=== PATIENT | male | born 1970 | race Caucasian/White ===

== ENCOUNTER 2020-08-29 22:08 | Emergency (ER) | payer SELFPAY ==
[2020-08-29 22:14] VITALS: BP 136/81; PULSE 107; RESP 18; TEMP 36.5; O2SAT 94
[2020-08-29 22:29] LABS: Glucose Point of Care 348 mg/dL (70-110)
--- NOTE | 2020-08-29 22:34 | W.ED.NAVMDI ---
HPI - Nausea/Vomiting/Diarrhea General: Chief complaint: Nausea/Vomiting/Diarrhea Stated complaint: vomiting, needing blood sugar tested Time Seen by Provider: 08/29/20 22:23 Source: patient Mode of arrival: ambulatory Limitations: no limitations History of Present Illness: HPI Narrative: 50-year-old male states the last 2 to 3 weeks he has had increased thirst along with a a lot of urination. He states he is concerned he is a diabetic. His blood sugar here is 348. She has had some slight blurry vision and nausea and vomiting tonight. Denies any pain anywhere. Denies any difficulty walking. Denies any chest pain. Associated nausea: Yes Associated symtoms: Reports nausea; Denies chest pain, dysuria or headache(s) Review of Systems Const: Denies: fever(s), chills, body aches or change in appetite Eyes: Denies: blurry vision or eye discomfort ENMT: Denies: throat pain or dental pain Card: Denies: chest pain Resp: Denies: dyspnea GI: Reports: nausea and vomiting; Denies: abdominal pain or diarrhea : Denies: dysuria Musc: Denies: neck pain or back pain Skin/Breast: Denies: rash Neuro: Denies: headache(s) Psych: Denies: depression Endo: Reports: polyuria and polydipsia Kvng/Lymph: Denies: easy bruising All/Imm: Denies: urticaria Physical Exam Const: COMMON NORMALS: no acute distress, patient oriented x3 and healthy appearing HENMT: COMMON NORMALS: normocephalic and atraumatic HEAD & SCALP: normocephalic and atraumatic Eye: COMMON NORMALS: Equal, round and reactive pupils present and EOMs intact bilaterally PUPIL: Yes Equal, round and reactive pupils present Neck/C-Spine: COMMON NORMALS: full ROM and supple Chest: COMMONS NORMALS: normal inspection of the chest and normal palpation of entire chest wall Resp: COMMON NORMALS: normal respiratory effort, No retractions, No use of accessory muscles and clear to auscultation bilaterally AUSCULTATION: clear to auscultation bilaterally Cardio: COMMON NORMALS: regular rate, regular rhythm and No murmurs present (Cardio) RATE: regular rate RHYTHM: regular rhythm GI: COMMON NORMALS: Normal to inspection, nondistended, normoactive bowel sounds present, Soft to palpation, non-tender and no masses PALPATION: Yes Soft to palpation Extremity: COMMON NORMALS: normal to inspection and full ROM Neuro: COMMON NORMALS: patient oriented x3, moves all extremities and no focal motor deficits Psych: COMMON NORMALS: mental status grossly normal, Normal thought process present and cooperative THOUGHT PROCESS: Normal thought process present Skin: COMMON NORMALS: no rashes or lesions noted and no wounds GENERAL SKIN EXAM: no rashes or lesions noted Course Vital Signs: Vital signs: Vital Signs Temperature 97.7 F 08/29/20 22:14 Pulse Rate 88 08/29/20 23:38 Respiratory Rate 16 08/29/20 23:38 Blood Pressure 151/91 08/29/20 23:38 Pulse Oximetry 95 08/29/20 23:38 MDM - Nausea/Vomiting/Diarrhea MDM Narrative: Medical decision making narrative: Patient presents here with hyperglycemia is likely prediabetic or early diabetic. We will start him on a low-dose of Metformin he is to follow-up with PCP. Will prescribe him Zofran as well for his nausea. His CT of his abdomen here is normal and other blood work is normal as well. He is stable for discharge is return if worsening. Lab Data: Labs: Lab Results 08/29/20 08/29/20 08/29/20 Range/Units 22:24 22:55 22:55 WBC 8.9 (4.0-10.0) 10^3/ uL RBC 5.08 (4.1-5.3) 10^6/u L Hgb 15.9 (11.7-16.6) g/dL Hct 44.6 (42.0-52.0) % MCV 87.8 (80-94) fL MCH 31.3 (28.0-34.0) pg MCHC 35.7 (30.0-36.0) g/dL RDW 11.7 L (12.1-15.1) % Plt Count 210 (130-400) 10^3/c mm MPV 10.8 H (7.4-10.4) fL Neut % (Auto) 83.2 % Lymph % (Auto) 7.2 % [place] % (Auto) 7.0 % Eos % (Auto) 1.3 % Baso % (Auto) 0.9 % Neut # (Auto) 7.43 (1.8-7.7) 10^3/u L Lymph # (Auto) 0.6 L (0.8-4.8) 10^3/u L [place] # (Auto) 0.6 (0.2-0.9) 10^3/u L Eos # (Auto) 0.1 (0.0-0.8) 10^3/u L Baso # (Auto) 0.1 (0.0-0.1) 10^3/u L Nucleated RBC % (a uto) 0 % Nucleated RBCs # 0.0 /100WBC Sodium 128 L (136-145) mmol/L Potassium 4.7 (3.5-5.1) mmol/L Chloride 91 L (98-107) mmol/L Carbon Dioxide 27 (22-29) mmol/L Anion Gap 14.7 (5-19) BUN 13 (6-20) mg/dL Creatinine 1.0 (0.7-1.2) mg/dL GFR Calculation 79.4 L (90-130) mL/min Glucose 353 H (65-115) mg/dL POC Glucose 348 H (70-110) mg/dL Estimat Average Gl ucose Hemoglobin A1c (4.0-6.0) % Calculated Osmolal ity 280 L (285-295) mOsm/k g Calcium 9.3 (8.5-10.5) mg/dL Total Bilirubin 0.9 (0.15-1.2) mg/dL AST 280 H (0-40) U/L ALT 438 H (0-41) U/L Alkaline Phosphata se 151 H (40-130) IU/L Total Protein 7.5 (6.6-8.7) g/dL Albumin 4.4 (3.5-5.2) g/dL Globulin 3.1 (1.3-4.6) g/dL Lipase 27 (13-60) U/L 08/29/20 08/30/20 Range/Units 22:55 00:08 WBC (4.0-10.0) 10^3/ uL RBC (4.1-5.3) 10^6/u L Hgb (11.7-16.6) g/dL Hct (42.0-52.0) % MCV (80-94) fL MCH (28.0-34.0) pg MCHC (30.0-36.0) g/dL RDW (12.1-15.1) % Plt Count (130-400) 10^3/c mm MPV (7.4-10.4) fL Neut % (Auto) % Lymph % (Auto) % [place] % (Auto) % Eos % (Auto) % Baso % (Auto) % Neut # (Auto) (1.8-7.7) 10^3/u L Lymph # (Auto) (0.8-4.8) 10^3/u L [place] # (Auto) (0.2-0.9) 10^3/u L Eos # (Auto) (0.0-0.8) 10^3/u L Baso # (Auto) (0.0-0.1) 10^3/u L Nucleated RBC % (a uto) % Nucleated RBCs # /100WBC Sodium (136-145) mmol/L Potassium (3.5-5.1) mmol/L Chloride (98-107) mmol/L Carbon Dioxide (22-29) mmol/L Anion Gap (5-19) BUN (6-20) mg/dL Creatinine (0.7-1.2) mg/dL GFR Calculation (90-130) mL/min Glucose (65-115) mg/dL POC Glucose 347 H (70-110) mg/dL Estimat Average Gl ucose 105 Hemoglobin A1c 5.3 (4.0-6.0) % Calculated Osmolal ity (285-295) mOsm/k g Calcium (8.5-10.5) mg/dL Total Bilirubin (0.15-1.2) mg/dL AST (0-40) U/L ALT (0-41) U/L Alkaline Phosphata se (40-130) IU/L Total Protein (6.6-8.7) g/dL Albumin (3.5-5.2) g/dL Globulin (1.3-4.6) g/dL Lipase (13-60) U/L Imaging Data^: CT Abd/Pel: Radiologist's impression: [address] [address] [address] Scan Report Signed Patient: Niels Del Cid Unit #: [id number] : 1970 Age/Sex: 50 / M ADM Date: 08/29/20 Loc: ER Room/Bed: Attending Dr: Ordering Provider/Ordering MD: Serge Quiros MD Date of Service: 08/29/20 Procedure(s): CT abdomen pelvis w con* [id number] Accession Number(s): [id number] Report Number: [id number] PROCEDURE INFORMATION: Exam: CT Abdomen And Pelvis With Contrast Exam date and time: 08/29/2020 12:11 AM Age: 50 years old Clinical indication: Nausea and vomiting; Patient HX: N/v with elevated blood sugar; Additional info: Pain TECHNIQUE: Imaging protocol: Computed tomography of the abdomen and pelvis with contrast. Radiation optimization: All CT scans at this facility use at least one of these dose optimization techniques: automated exposure control; mA and/or kV adjustment per patient size (includes targeted exams where dose is matched to clinical indication); or iterative reconstruction. Contrast material: OMNI 300; Contrast volume: 95 ml; Contrast route: INTRAVENOUS (IV); COMPARISON: No relevant prior studies available. RADIATION DOSE METRICS: Total DLP (mGy-cm): 2098.33 FINDINGS: Lungs: No significant abnormaility demonstrated. Liver: Decreased hepatic density is noted, consistent with hepatic steatosis. Gallbladder and bile ducts: No calcified gallstones in the gallbladder. No gallbladder wall thickening. No pericholecystic fluid. No biliary dilatation. Pancreas: The pancreas is normal in appearance. No pancreatic duct dilatation. Spleen: Calcified granulomas in the spleen. Adrenal glands: The adrenal glands appear within normal limits. Kidneys and ureters: 10 mm simple appearing cyst left kidney. Kidneys are otherwise unremarkable. No hydronephrosis. Stomach and bowel: No acute gastric abnormality demonstrated. No acute abnormality/inflammatory change of the colon. Mild mural thickening and mucosal enhancement of the proximal small bowel which may indicate mild enteritis. No small bowel obstruction. Appendix: The appendix is normal in appearance. No evidence of appendicitis. Intraperitoneal space: No free air. No significant fluid collection. Vasculature: The aorta is unremarkable as demonstrated. Lymph nodes: Calcified mediastinal lymph nodes consistent with old granulomatous disease. No pathologically enlarged lymph nodes are demonstrated. Urinary bladder: The urinary bladder is unremarkable in appearance. Reproductive: Unremarkable as visualized. Bones/joints: Degenerative disc changes are noted at L5-S1. No acute osseous abnormality. Soft tissues: Unremarkable. CT/CT abdomen pelvis w con* [id number] IMPRESSION: 1. Decreased hepatic density is noted, consistent with hepatic steatosis. 2. Mild mural thickening and mucosal enhancement of the proximal small bowel which may indicate mild enteritis. No small bowel obstruction. 3. Mild changes of old granulomatous disease are identified. Discharge Plan Discharge Patient Disposition: Home Clinical Impression: Hyperglycemia Vomiting Qualifiers: Vomiting type: unspecified Vomiting Intractability: non-intractable Nausea presence: with nausea Qualified Code(s): R11.2 - Nausea with vomiting, unspecified Condition: Stable Prescriptions: New ondansetron 4 mg tablet,disintegrating 4 mg PO Q6H PRN (Reason: nausea and vomiting) Qty: 14 RF: 0 metformin 500 mg tablet 500 mg PO BID Qty: 60 RF: 0 Discharge Orders: Discharge ED (Routine); Ordered 08/30/20 Ordered By: Serge Quiros Discharge Diet: Advance as tolerated Discharge Activity: Resume usual activity Patient Instructions: Diabetic Hyperglycemia (ED) Coding Level of Care Code ED Metal Sprayer Protective Coating for Chg Fwd Exam Comprehensive
[2020-08-29] MEDS: ondansetron 2 mg/ML SDV 2 mL 4 MG IVP (22:56)
[2020-08-29] MEDS: sodium chloride 0.9% 1,000 ML 999 ML IV (22:56)
[2020-08-29 23:03] LABS: Basophils # 0.1 10^3/uL (0.0-0.1); Basophils % 0.9 %; Eosinophils # 0.1 10^3/uL (0.0-0.8); Eosinophils % 1.3 %; Hematocrit 44.6 % (42.0-52.0); Hemoglobin 15.9 g/dL (11.7-16.6); Lymphocytes # 0.6 10^3/uL (0.8-4.8); Lymphocytes % 7.2 %; Mean Corpuscular HGB Conc 35.7 g/dL (30.0-36.0); Mean Corpuscular Hemoglobin 31.3 pg (28.0-34.0); Mean Corpuscular Volume 87.8 fL (80-94); Mean Platelet Volume 10.8 fL (7.4-10.4); Monocytes # 0.6 10^3/uL (0.2-0.9); Neutrophils # 7.43 10^3/uL (1.8-7.7); Neutrophils % 83.2 %; Nucleated Red Blood Cells % 0 %; Platelet Count 210 10^3/cmm (130-400); Red Blood Count 5.08 10^6/uL (4.1-5.3); Red Cell Distribution Width 11.7 % (12.1-15.1); White Blood Count 8.9 10^3/uL (4.0-10.0)
[2020-08-29 23:20] VITALS: BP 146/88; PULSE 91; RESP 16; O2SAT 94
[2020-08-29 23:29] LABS: Alanine Aminotransferase 438 U/L (0-41); Albumin Level 4.4 g/dL (3.5-5.2); Alkaline Phosphatase 151 IU/L (40-130); Anion Gap 14.7 (5-19); Aspartate Amino Transferase 280 U/L (0-40); Blood Urea Nitrogen 13 mg/dL (6-20); Calcium 9.3 mg/dL (8.5-10.5); Carbon Dioxide 27 mmol/L (22-29); Chloride 91 mmol/L (98-107); Globulin 3.1 g/dL (1.3-4.6); Glomerular Filtration Rate 79.4 mL/min (90-130); Glucose 353 mg/dL (65-115); Lipase 27 U/L (13-60); Osmolality Calculated 280 mOsm/kg (285-295); Potassium 4.7 mmol/L (3.5-5.1); Sodium 128 mmol/L (136-145); Total Bilirubin 0.9 mg/dL (0.15-1.2); Total Protein 7.5 g/dL (6.6-8.7)
[2020-08-29 23:33] LABS: Estmated Average Glucose 105; Hemoglobin A1C 5.3 % (4.0-6.0)
--- NOTE | 2020-08-29 23:37 | CTR_ITS ---
PROCEDURE INFORMATION: Exam: CT Abdomen And Pelvis With Contrast Exam date and time: 08/29/2020 12:11 AM Age: 50 years old Clinical indication: Nausea and vomiting; Patient HX: N/v with elevated blood sugar; Additional info: Pain TECHNIQUE: Imaging protocol: Computed tomography of the abdomen and pelvis with contrast. Radiation optimization: All CT scans at this facility use at least one of these dose optimization techniques: automated exposure control; mA and/or kV adjustment per patient size (includes targeted exams where dose is matched to clinical indication); or iterative reconstruction. Contrast material: OMNI 300; Contrast volume: 95 ml; Contrast route: INTRAVENOUS (IV); COMPARISON: No relevant prior studies available. RADIATION DOSE METRICS: Total DLP (mGy-cm): 2098.33 FINDINGS: Lungs: No significant abnormaility demonstrated. Liver: Decreased hepatic density is noted, consistent with hepatic steatosis. Gallbladder and bile ducts: No calcified gallstones in the gallbladder. No gallbladder wall thickening. No pericholecystic fluid. No biliary dilatation. Pancreas: The pancreas is normal in appearance. No pancreatic duct dilatation. Spleen: Calcified granulomas in the spleen. Adrenal glands: The adrenal glands appear within normal limits. Kidneys and ureters: 10 mm simple appearing cyst left kidney. Kidneys are otherwise unremarkable. No hydronephrosis. Stomach and bowel: No acute gastric abnormality demonstrated. No acute abnormality/inflammatory change of the colon. Mild mural thickening and mucosal enhancement of the proximal small bowel which may indicate mild enteritis. No small bowel obstruction. Appendix: The appendix is normal in appearance. No evidence of appendicitis. Intraperitoneal space: No free air. No significant fluid collection. Vasculature: The aorta is unremarkable as demonstrated. Lymph nodes: Calcified mediastinal lymph nodes consistent with old granulomatous disease. No pathologically enlarged lymph nodes are demonstrated. Urinary bladder: The urinary bladder is unremarkable in appearance. Reproductive: Unremarkable as visualized. Bones/joints: Degenerative disc changes are noted at L5-S1. No acute osseous abnormality. Soft tissues: Unremarkable. CT/CT abdomen pelvis w con* [id number] IMPRESSION: 1. Decreased hepatic density is noted, consistent with hepatic steatosis. 2. Mild mural thickening and mucosal enhancement of the proximal small bowel which may indicate mild enteritis. No small bowel obstruction. 3. Mild changes of old granulomatous disease are identified. COMMENTS: Consistent with the [employer]'s Incidental Findings Committee white paper (J Am Jenny Radiol 2018): Any incidental renal lesion less than 1 cm or classified as too small to characterize, or any incidental cystic renal lesion characterized as simple-appearing, is likely benign. No follow-up imaging is recommended for these lesions per consensus recommendations based on imaging criteria. Radiation Dose CTDIVOL = (mGy): DLP = 2098.33 (mGy-cm)
[2020-08-29 23:38] VITALS: BP 151/91; PULSE 88; RESP 16; O2SAT 95
[2020-08-30] MEDS: sodium chloride 0.9% 1,000 ML 999 ML IV (00:07)
[2020-08-30 00:10] LABS: Glucose Point of Care 347 mg/dL (70-110)
[2020-08-30] MEDS: iohexol 300 mg/mL 100 mL Btl IV (00:13)
[2020-08-30 01:00] VITALS: BP 149/79; PULSE 92; RESP 18; O2SAT 97
--- NOTE | 2020-08-30 13:26 | DCPLANNER ---
manager sports had message to speak with patient about getting established with a primary care physician. manager sports called phone number [phone], unable to speak with patient at this time, and unable to leave a voicemail for patient due to no voicemail box set up at this time.
--- NOTE | 2020-09-12 15:33 | DCPLANNER ---
Patient called centralized scheduling asking about the follow up call that he was supposed to be getting after his ER visit about getting established with a primary care. manager hair explained that case fitter tried to call patient, case fitter was told that case fitter had the wrong phone number for patient. manager hair was given an updated phone number, , case fitter called phone number, unable to speak with patient at this time. manager hair left a voicemail for patient to return case fitter phone call.
--- NOTE | 2020-09-13 09:27 | DCPLANNER ---
Patients significant other called case management specialist due to missing a phone call from case management specialist. gym manager explained that case management specialist called due to patient needing a primary care physician. Patients friend stated that patient needed a physician, and that he would prefer a male physician. gym manager called [facility], spoke with Daphney, gave clinic patients information. A follow up appointment was scheduled for September at 7:[address] Valentine. gym manager called patients friend and gave her the appointment information. gym manager also gave patients friend the phone number to the clinic. gym manager explained that patient can call cancel the appointment, or reschedule the appointment but to not attend appointment. gym manager also told her that patient would be getting a letter in the mail and that patient would need to call and confirm the appointment or that it would be cancelled. Patients friend stated that she understood and that patient will attend the appointment.
--- NOTE | 2020-10-24 08:18 | DCPLANNER ---
Patient had a follow up appointment scheduled for 09.28.20 at [facility] with Dr. Valentine - patient did attend appointment.
== END 2020-08-30 01:02 | disposition home or self-care (01) ==
PROVIDERS: Emergency Provider Emergency Medicine
DX: R11.2 Nausea with vomiting, unspecified (principal); R73.9 Hyperglycemia, unspecified
CPT/HCPCS: 36416; 74177; 80053; 82962; 83036; 83690; 85025; 96361; 96374; 99284; J2405; J7030; Q9967

== ENCOUNTER → 2020-09-28 08:24 | Outpatient (BNVA) | payer SELFPAY | PROVIDERS: Visit Provider Family Medicine Adult Medicine | DX: E11.9 Type 2 diabetes mellitus without complications (principal); M54.2 Cervicalgia; M54.9 Dorsalgia, unspecified; G89.29 Other chronic pain; R94.4 Abnormal results of kidney function studies; R74.8 Abnormal levels of other serum enzymes; Z68.31 Body mass index [BMI] 31.0-31.9, adult | CPT/HCPCS: 80053 ==

== ENCOUNTER → 2020-10-26 07:29 | Outpatient (BNVA) | payer SELFPAY | PROVIDERS: PCP Family Medicine Adult Medicine; Visit Provider Family Medicine Adult Medicine | DX: E11.9 Type 2 diabetes mellitus without complications (principal); R74.8 Abnormal levels of other serum enzymes; R94.4 Abnormal results of kidney function studies; Z68.31 Body mass index [BMI] 31.0-31.9, adult | CPT/HCPCS: 80053; 80061; 83036 ==

== ENCOUNTER → 2021-01-25 07:41 | Outpatient (BNVA) | payer SELFPAY | PROVIDERS: PCP Family Medicine Adult Medicine; Visit Provider Family Medicine Adult Medicine | DX: E11.9 Type 2 diabetes mellitus without complications (principal); R74.8 Abnormal levels of other serum enzymes; R94.4 Abnormal results of kidney function studies | CPT/HCPCS: 80053; 83036 ==

== ENCOUNTER → 2021-04-26 07:22 | Outpatient (BNVA) | payer SELFPAY | PROVIDERS: PCP Family Medicine Adult Medicine; Visit Provider Family Medicine Adult Medicine | DX: E11.9 Type 2 diabetes mellitus without complications (principal); I10 Essential (primary) hypertension; Z13.6 Encounter for screening for cardiovascular disorders; E66.9 Obesity, unspecified | CPT/HCPCS: 80053; 80061; 83036 ==

== ENCOUNTER 2022-12-05 10:27 | Emergency (ER) | payer SELFPAY ==
[2022-12-05 10:38] VITALS: BP 179/103; PULSE 82; RESP 15; O2SAT 96; BMI 30.5
--- NOTE | 2022-12-05 11:02 | XR_ITS ---
WS: [id number] XR foot LT min 3V* [id number] REASON FOR EXAM: trauma FINDINGS: No fracture is identified. The joint spaces of the forefoot, midfoot, and hindfoot are intact and relatively well-preserved. No radiopaque foreign body is identified in the soft tissues. Small calcaneal plantar enthesophyte. XR/XR foot LT min 3V* [id number] IMPRESSION: No acute abnormality.
--- NOTE | 2022-12-05 11:08 | XR_ITS ---
WS: [id number] XR ankle LT min 3V* [id number] REASON FOR EXAM: trauma FINDINGS: No fracture identified. Joint spaces are intact and well preserved. No radiopaque foreign body in the soft tissues. XR/XR ankle LT min 3V* [id number] IMPRESSION: No acute abnormality.
--- NOTE | 2022-12-05 11:14 | ED_ITS ---
HPI - Extremity Problem General: Chief complaint: Extremity Injury, Lower Stated complaint: Left leg injury Time Seen by Provider: 12/05/22 10:49 Source: patient Mode of arrival: ambulatory History of Present Illness: 52-year-old male presents emergency room complaint of left ankle and foot pain. 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 He did not strike his head he did not lose consciousness his only complaint of pain is at left ankle and foot. He says it feels a little bit tingling. He has a hard time distinguishing hot and cold but can feel light and sharp touch. He previously had an ankle fracture several years ago. He is wearing a left elbow brace but he said that its been an ongoing problem there is no new injury there. MD Complaint: extremity pain Onset (ago): minute(s) Pain Consistency: constant Location: left Quality: sharp Relieving factors: immobilization Exacerbating factors: range of motion, weight bearing and palpation Associated symptoms: Deny arthralgias, chest pain, fever(s), myalgias, rash or short of breath Review of Systems Const: Denies: fever(s) or chills ENMT: Denies: throat pain, ear or mastoid pain, nasal discharge or nasal congestion Card: Denies: chest pain Resp: Denies: dyspnea, productive cough or non-productive cough GI: Denies: abdominal pain or nausea : Denies: flank pain, dysuria, urinary frequency or urinary urgency Musc: Reports: joint pain Skin/Breast: Denies: rash or pruritus PFSH ED PFSH: Medical History Chronic neck and back pain Decreased calculated GFR Diabetes type 2, controlled Elevated liver enzymes Hypertension Obesity (BMI 30.0-34.9) Family History Other CAD (coronary artery disease) Cancer Diabetes Social History Alcohol intake: never Substance/Drug Use: never Household members: significant other Marital status: Number of children: 2 Number of grandchildren: 0 Current occupational status: employed Current occupation: self employed Physical Exam Const: GENERAL APPEARANCE: cooperative and comfortable ORIENTATION/CONSCIOUSNESS: Yes awake, Yes oriented to person, Yes oriented to place and Yes oriented to time HENMT: COMMON NORMALS: normocephalic, atraumatic and hearing grossly normal bilaterally HEAD & SCALP: normocephalic and atraumatic Resp: COMMON NORMALS: normal respiratory effort, No retractions, No use of accessory muscles and clear to auscultation bilaterally AUSCULTATION: clear to auscultation bilaterally Cardio: COMMON NORMALS: regular rate, regular rhythm and No murmurs present (Cardio) RATE: regular rate RHYTHM: regular rhythm GI: COMMON NORMALS: Soft to palpation and No hepatosplenomegaly present AUSCULTATION: Yes normoactive bowel sounds PALPATION: Yes Soft to palpation, No Tenderness to palpation present (GI), No Guarding due to palpation present (GI) and Yes No hepatosplenomegaly present : COMMON NORMALS: Yes no CVA tenderness BLADDER/KIDNEY EXAM: Yes no CVA tenderness Back/Pelvis: COMMON NORMALS: no CVA tenderness Extremity: OTHER: No significant swelling no abrasion no laceration dorsum plantarflexion 5 of 5 sensation to sharp and dull touch normal no cyanosis. Neuro: SENSORIUM/ORIENTATION: Yes oriented to person, Yes oriented to place and Yes oriented to time Skin: COMMON NORMALS: no rashes or lesions noted GENERAL SKIN EXAM: no rashes or lesions noted Course Vital Signs: Vital signs: Vital Signs Pulse Rate 85 12/05/22 12:23 Respiratory Rate 16 12/05/22 12:23 Blood Pressure 164/87 12/05/22 12:23 Pulse Oximetry 98 12/05/22 12:23 Oxygen Delivery Me thod Room Air 12/05/22 10:38 MDM - Extremity (Nontraumatic) Medical Decision Making No acute fracture noted on x-ray. Rest ice elevation anti-inflammatories follow-up with primary care if not improving. He is able to bear weight initially he did not want crutches. We did give him crutches to go home in case he changes his mind. Medical Records I reviewed the patient's medical records. Lab Data I reviewed the patient's lab results. Radiology Impressions Foot X-Ray 12/05/22 11:02 IMPRESSION: No acute abnormality. Ankle X-Ray 12/05/22 11:08 IMPRESSION: No acute abnormality. Discharge Plan Discharge Patient Disposition: Home Clinical Impression: Ankle sprain and strain Condition: Stable Prescriptions: New diclofenac sodium 75 mg tablet,delayed release (DR/EC) 75 mg PO Q12H PRN (Reason: pain) Qty: 20 0RF No Action acetaminophen [Tylenol] 325 mg tablet 325 mg PO QID PRN lisinopril 5 mg tablet 5 mg PO DAILY Qty: 90 2RF metformin 500 mg tablet 500 mg PO DAILY Qty: 90 2RF Discharge Orders: Discharge ED (Routine); Ordered 12/05/22 Ordered By: Huber Rodríguez Other Ambulatory Orders: DME: Cane/ Crutches (Order) Location: None Selected Ordered By: Huber Rodríguez Discharge Diet: Usual diet Discharge Activity: Increase activity as tolerated Patient Instructions: Opioid Safety, Pain Management Activity Restrictions/Additional Instructions: Follow-up with your primary care doctor if not improving. Ice rest elevate anti-inflammatories as needed Coding Level of Care Code ED Invoice Clerk for Justus Nichols
[2022-12-05 11:21] VITALS: BP 170/101; PULSE 80; O2SAT 97
[2022-12-05 12:23] VITALS: BP 164/87; PULSE 85; RESP 16; O2SAT 98
--- NOTE | 2022-12-06 12:58 | DCPLANNER ---
TCM called patient due to no primary care physician - no answer at this time.
== END 2022-12-05 12:27 | disposition home or self-care (01) ==
PROVIDERS: Emergency Provider Family Medicine
DX: S93.402A Sprain of unspecified ligament of left ankle, initial encounter (principal); S96.912A Strain of unspecified muscle and tendon at ankle and foot level, left foot, initial encounter; W20.8XXA Other cause of strike by thrown, projected or falling object, initial encounter; Y93.89 Activity, other specified; Y99.0 Civilian activity done for income or pay
CPT/HCPCS: 73610; 73630; 99283

== ENCOUNTER 2024-09-30 06:48 | Emergency (ER) | payer SELFPAY ==
[2024-09-30] VITALS (12 sets, daily range): BP systolic 149–204; BP diastolic 90–116; PULSE 56–79; RESP 17–32; O2SAT 95–100
--- NOTE | 2024-09-30 07:01 | CTR_ITS ---
PROCEDURE INFORMATION: Exam: CT Head Without Contrast Exam date and time: 09/30/2024 6:59 AM Age: 54 years old Clinical indication: Stroke-like symptoms; Dizziness/giddiness and vomiting; Additional info: Symptoms of acute stroke TECHNIQUE: Imaging protocol: Computed tomography of the head without contrast. Radiation optimization: All CT scans at this facility use at least one of these dose optimization techniques: automated exposure control; mA and/or kV adjustment per patient size (includes targeted exams where dose is matched to clinical indication); or iterative reconstruction. Other technique: STROKE PROTOCOL was implemented. COMPARISON: No relevant prior studies available. RADIATION DOSE METRICS: Total DLP (mGy-cm): 1192.32 FINDINGS: Brain: There is no evidence of acute parenchymal hemorrhage, extra-axial collection, or acute infarction. There is no mass effect, midline shift, or downward herniation. Cerebral ventricles: No ventriculomegaly. Paranasal sinuses: Visualized sinuses are unremarkable. No fluid levels. Mastoid air cells: Visualized mastoid air cells are well aerated. Bones: Unremarkable. No acute fracture. Soft tissues: Unremarkable. CT/CT head thrombolytic [id number] IMPRESSION: No acute intracranial abnormality. ASSESSMENT: ASPECTS ([place] Stroke Program Early CT Score) is 10.
--- NOTE | 2024-09-30 07:04 | ED_ITS ---
HPI - Chest Pain 2 General: Chief Complaint: Chest Pain Stated Complaint: cp,n,v Time Seen by Provider: 09/30/24 07:01 History of Present Illness: 54-year-old male presents to the emergen cy room complaining of nausea vomiting has been going on all night began last night around 10:00. Patient states he also has a little bit of chest discomfort. He has dizziness that he reports is worsened by laying down or by looking up. Patient is diabetic is a history hypertension he has not been taking any of his medications for this. Is not currently having any chest pain at the moment. Initial EKG shows LVH no acute ST segment changes. Associated symptoms: Deny abdominal pain, dyspnea or fever(s) Related Data Previous Rx's ?Medication ?Instructions ?Recorded metformin 500 mg tablet 500 mg PO BID #60 tabs 09/30 metoprolol succinate 25 mg 12.5 mg (1/2 x 25 mg) PO DA JEAN MARIE #15 09/30/24 tablet,extended release 24 hr tabs (Toprol XL) Allergies Allergy/AdvReac Type Severity Reaction Status Date / Time aspirin Allergy ADR-Nose Verified 04/26/21 07:01 Bleed Review of Systems 2 Const: Denies: fever(s) or chills Card: Denies: chest pain Resp: Denies: dyspnea GI: Denies: abdominal pain : Denies: dysuria, urinary frequency or urinary urgency Musc: Denies: neck pain or back pain Skin/Breast: Denies: rash PFSH ED 2 PFSH: Medical History Obesity (BMI 30.0-34.9) Hypertension Elevated liver enzymes Decreased calculated GFR Chronic neck and back pain Diabetes type 2, controlled Family History Other CAD (coronary artery disease) Cancer Diabetes Social History Alcohol intake: never Substance/Drug Use: never Household members: significant other Marital status: Number of children: 2 Number of grandchildren: 0 Current occupational status: employed Current occupation: self employed Physical Exam 2 Const: GENERAL APPEARANCE: cooperative ORIENTATION/CONSCIOUSNESS: Yes awake, Yes oriented to person, Yes oriented to place and Yes oriented to time HENMT: COMMON NORMALS: normocephalic, atraumatic and hearing grossly normal bilaterally HEAD & SCALP: normocephalic and atraumatic Resp: COMMON NORMALS: normal respiratory effort, No retractions, No use of accessory muscles and clear to auscultation bilaterally AUSCULTATION: clear to auscultation bilaterally Cardio: COMMON NORMALS: regular rate, regular rhythm and No murmurs present (Cardio) RATE: regular rate RHYTHM: regular rhythm GI: COMMON NORMALS: Soft to palpation and No hepatosplenomegaly present A USCULTATION: Yes normoactive bowel sounds PALPATION: Yes Soft to palpation, No Tenderness to palpation present (GI), No Guarding due to palpation present (GI) and Yes No hepatosplenomegaly present Extremity: COMMON NORMALS: normal to inspection, capillary refill normal, no clubbing, cyanosis or edema, no calf tenderness and no pedal edema Neuro: SENSORIUM/ORIENTATION: Yes oriented to person, Yes oriented to place and Yes oriented to time Skin: COMMON NORMALS: no rashes or lesions noted GENERAL SKIN EXAM: no rashes or lesions noted Course 2 Vital Signs: Vital signs: Vital Signs Pulse Rate 56 L 09/30/24 09:30 Respiratory Rate 17 09/30/24 09:30 Blood Pressure 167/96 09/30/24 09:30 Pulse Oximetry 95 09/30/24 09:30 MDM - Chest Pain Medical Decision Making Symptoms resolved after blood pressure is controlled. CT of the head is negative NIH score 0 patient able to ambulate without significant difficulty no longer having any positional vertigo or dizziness now that his blood pressures improved. He was previously on antihypertensives as well as previously being on metformin. Will discharge patient home restart metformin 500 twice daily start Toprol XL 12.5 mg daily. Case management to help her make arrangements for establishing with a PCP. EKG and cardiac enzymes did not show sign of acute coronary syndrome we will set up outpatient Lexiscan sestamibi stress testing. Medical Records I reviewed the patient's medical records. Lab Data I reviewed the patient's lab results. 09/30/24 07:16 09/30/24 07:[address] 09/30/24 07:01 IMPRESSION: No acute intracranial abnormality. ASSESSMENT: ASPECTS ([place] Stroke Program Early CT Score) is 10. ADDENDUM: 09/30/2414 THIS REPORT CONTAINS FINDINGS THAT MAY BE CRITICAL TO PATIENT CARE. The findings were verbally communicated via telephone conference with HUBER GRISSOM at 7:13 AM CDT on 09/30/2024. The findings were acknowledged and understood. Laboratory Results WBC 7.94 10^3/uL (3.29-11.43) 09/30/24 07:16 RBC 5.10 10^6/uL (3.85-5.65) 09/30/24 07:16 Hgb 15.80 g/dL (11.27-16.99) 09/30/24 07:16 Hct 43.8 % (37-53) 09/30/24 07:16 MCV 85.9 fl (82-101) 09/30/24 07:16 MCH 31.0 pg (27-33) 09/30/24 07:16 MCHC 36.1 g/dL (30-55) 09/30/24 07:16 RDW 12.0 % (12.1-15.1) L 09/30/24 07:16 Plt Count 286 10^3/cmm (157-399) 09/30/24 07:16 MPV 9.8 fL (7.4-10.4) 09/30/24 07:16 Neut % (Auto) 68.1 % 09/30/24 07:16 Lymph % (Auto) 23.3 % 09/30/24 07:16 [place] % (Auto) 6.2 % 09/30/24 07:16 Eos % (Auto) 1.3 % 09/30/24 07:16 Baso % (Auto) 0.8 % 09/30/24 07:16 Neut # (Auto) 5.42 10^3/uL (1.8-7.7) 09/30/24 07:16 Lymph # (Auto) 1.9 10^3/uL (0.8-4.8) 09/30/24 07:16 [place] # (Auto) 0.5 10^3/uL (0.2-0.9) 09/30/24 07:16 Eos # (Auto) 0.1 10^3/uL (0.0-0.8) 09/30/24 07:16 Baso # (Auto) 0.1 10^3/uL (0.0-0.1) 09/30/24 07:16 Nucleated RBC % (auto) 0 % 09/30/24 07:16 Nucleated RBCs # 0.0 /100WBC 09/30/24 07:16 PT 13.00 SECONDS (12.1-14.9) 09/30/24 07:16 INR 0.92 (0.8-1.2) 09/30/24 07:16 APTT 21.9 SECONDS (23.9-36.7) L 09/30/24 07:16 Sodium 137 mmol/L (136-145) 09/30/24 07:16 Potassium 3.9 mmol/L (3.5-5.1) 09/30/24 07:16 Chloride 98 mmol/L (98-107) 09/30/24 07:16 Carbon Dioxide 23 mmol/L (22-29) 09/30/24 07:16 Anion Gap 19.9 (5-19) H 09/30/24 07:16 BUN 12 mg/dL (6-20) 09/30/24 07:16 Creatinine 0.9 mg/dL (0.7-1.2) 09/30/24 07:16 GFR Calculation 88.3 mL/min (90-130) L 09/30/24 07:16 Glucose 239 mg/dL (65-115) H 09/30/24 07:16 POC Glucose 218 mg/dL (70-110) H 09/30/24 07:09 Calculated Osmolality 292 mOsm/kg (285-295) 09/30/24 07:16 Calcium 9.5 mg/dL (8.5-10.5) 09/30/24 07:16 Total Bilirubin 0.8 mg/dL (0.15-1.2) 09/30/24 07:16 AST 51 U/L (0-40) H 09/30/24 07:16 ALT 123 U/L (0-41) H 09/30/24 07:16 Alkaline Phosphatase 105 U/L (40-130) 09/30/24 07:16 Troponin T Baseline < 6 ng/L (0-15) 09/30/24 07:16 Troponin T 120 Minute 6.00 ng/L (0-15) 09/30/24 09:07 Delta Troponin T 0.27926 ABS# (0-10) 09/30/24 09:07 Total Protein 8.1 g/dL (6.6-8.7) 09/30/24 07:16 Albumin 4.8 g/dL (3.5-5.2) 09/30/24 07:16 Globulin 3.3 g/dL (1.3-4.6) 09/30/24 07:16 All radiology interpretation(s) finalized by discharge Discharge Plan Discharge Patient Disposition: Home Clinical Impression: Hypertension, Obesity (BMI 30.0-34.9), Diabetes type 2, controlled, Atypical chest pain Condition: Stable Prescriptions: New metformin 500 mg tablet 500 mg PO BID Qty: 60 0RF metoprolol succinate [Toprol XL] 25 mg tablet extended release 24 hr 12.5 mg PO DAILY Qty: 15 0RF Discharge Orders: Discharge ED (Routine); Ordered 09/30/24 Ordered By: Huber Grissom Discharge Diet: Usual diet Discharge Activity: Increase activity as tolerated Patient Instructions: Opioid Safety, Pain Management Activity Restrictions/Additional Instructions: Thank you for choosing [facility] for your healthcare needs today. It is very important that you follow up as instructed or that you return to the Emergency Department should you have concerns or if your condition changes or worsens in any way. You were seen in the emergency room with dizziness lightheadedness is improved when your blood pressure is controlled. CT of your head and exam did not show any signs of acute stroke. Cardiac enzymes and EKG did not show any acute changes. Your blood sugar was elevated over 200 this morning. We do recommend that you restart your metformin 500 mg twice a day. Additionally start metoprolol half a tablet once a day. Case management will help make arrangements for you to have an outpatient stress test as well as establish with a primary care physician to manage your diabetes and blood pressure and follow- up with results of the stress test. Print Language: Amharic Coding Level of Care Code ED Upsetter Helper for Justus Nichols NIH stroke score NIHSS Level Of Consciousness - 1a: 0 Level Of Consciousness Questions - 1b: Both Correct Level Of Consciousness Commands - 1c: Both Correct Best Gaze - 2: Normal Visual Schumacher - 3: No Visual Loss Facial Palsy - 4: Normal Motor Arm Right - 5: No Drift Motor Arm Left - 5: No Drift Motor Leg Right - 6: No Drift Motor Leg Left - 6: No Drift Limb Ataxia - 7: Absent Sensory - 8: Normal Best Language - 9: No Aphasia Extinction And Inattention - 11: 0
--- NOTE | 2024-09-30 07:13 | ECG_ITS ---
Postmaster Test Date: 2024-09-30 Pat Name: Niels Del Cid Department: Room: Gender: Male Shop Cooper: : 1970 Requested By: Huber Aguilar Order Number: [id number] Lukas MD: Renea Ly M.D. Measurements Intervals [place] Rate: 78 P: 55 [place]: 144 QRS: -3 QRSD: 94 T: 156 QT: 368 QTc: 420 Interpretive Statements SINUS RHYTHM POSSIBLE RIGHT VENTRICULAR CONDUCTION DELAY [RSR (QR) IN V1/V2] MODERATE VOLTAGE CRITERIA FOR LVH, CONSIDER NORMAL VARIANT [MEETS CRITERIA IN ONE OF: R(aVL), S(V1), R(V5), R(V5/V6)+S(V1)] POSSIBLE SEPTAL MYOCARDIAL INFARCTION , OF INDETERMINATE AGE [30 ms Q WAVE IN V1/V2] Non diagnostic T wave changes No previous ECG available for comparison Electronically Signed On 10-02-2024 13:12:35 CDT by Renea Ly M.D. [email or web address] [id number]
[2024-09-30 07:19] LABS: Glucose Point of Care 218 mg/dL (70-110)
[2024-09-30 07:22] LABS: Basophils # 0.1 10^3/uL (0.0-0.1); Basophils % 0.8 %; Eosinophils # 0.1 10^3/uL (0.0-0.8); Eosinophils % 1.3 %; Hematocrit 43.8 % (37-53); Lymphocytes # 1.9 10^3/uL (0.8-4.8); Lymphocytes % 23.3 %; Mean Corpuscular HGB Conc 36.1 g/dL (30-55); Mean Corpuscular Volume 85.9 fl (82-101); Mean Platelet Volume 9.8 fL (7.4-10.4); Monocytes # 0.5 10^3/uL (0.2-0.9); Monocytes % 6.2 %; Neutrophils # 5.42 10^3/uL (1.8-7.7); Neutrophils % 68.1 %; Nucleated Red Blood Cells % 0 %; Platelet Count 286 10^3/cmm (157-399); White Blood Count 7.94 10^3/uL (3.29-11.43)
[2024-09-30] MEDS: ondansetron 2 mg/ML SDV 2 mL 4 MG IVP (07:33)
[2024-09-30] MEDS: labetalol 5 mg/mL SDV 20mL 10 MG IVP (07:33)
[2024-09-30 07:34] LABS: INR 0.92 (0.8-1.2)
[2024-09-30 07:35] LABS: Partial Thromboplastin Time 21.9 SECONDS (23.9-36.7)
[2024-09-30 07:39] LABS: Alanine Aminotransferase 123 U/L (0-41); Albumin Level 4.8 g/dL (3.5-5.2); Alkaline Phosphatase 105 U/L (40-130); Anion Gap 19.9 (5-19); Aspartate Amino Transferase 51 U/L (0-40); Blood Urea Nitrogen 12 mg/dL (6-20); Calcium 9.5 mg/dL (8.5-10.5); Carbon Dioxide 23 mmol/L (22-29); Chloride 98 mmol/L (98-107); Globulin 3.3 g/dL (1.3-4.6); Glomerular Filtration Rate 88.3 mL/min (90-130); Glucose 239 mg/dL (65-115); Osmolality Calculated 292 mOsm/kg (285-295); Potassium 3.9 mmol/L (3.5-5.1); Sodium 137 mmol/L (136-145); Total Bilirubin 0.8 mg/dL (0.15-1.2); Total Protein 8.1 g/dL (6.6-8.7)
[2024-09-30 07:40] LABS: Troponin(5th) Baseline < 6 ng/L (0-15)
--- NOTE | 2024-09-30 09:13 | ECG_ITS ---
FIA Formula E Test Date: 2024-09-30 Pat Name: Niels Del Cid Department: Room: Gender: Male Guest History Clerk: : 1970 Requested By: Huber Aguilar Order Number: [id number] Lukas MD: Renea Ly M.D. Measurements Intervals [place] Rate: 64 P: 37 [place]: 149 QRS: -4 QRSD: 98 T: 45 QT: 400 QTc: 413 Interpretive Statements SINUS RHYTHM INCOMPLETE RIGHT BUNDLE BRANCH BLOCK [90+ ms QRS DURATION, TERMINAL R IN V1/V2, 40+ ms S IN I/aVL/V4/V5/V6] VOLTAGE CRITERIA FOR LVH [MEETS CRITERIA IN ONE OF: R(aVL), S(V1), R(V5), R(V5/V6)+S(V1)] NONSPECIFIC T-WAVE ABNORMALITY Compared to ECG 09/30/2024 06:54:32 Incomplete right bundle-branch block now present T-wave abnormality now present Myocardial infarct finding no longer present Electronically Signed On 10-02-2024 13:29:34 CDT by Renea Ly M.D. [id number]
[2024-09-30 09:32] LABS: Troponin 5 2HR Delta 0.00001 ABS# (0-10)
--- NOTE | 2024-09-30 10:15 | DCPLANNER ---
messaged [facility] to establish PCP
--- NOTE | 2024-10-01 07:11 | DCPLANNER ---
faxed outpatient lexiscan order to scheduling
== END 2024-09-30 10:15 | disposition home or self-care (01) ==
PROVIDERS: Emergency Provider Family Medicine
DX: I10 Essential (primary) hypertension (principal); E66.9 Obesity, unspecified; Z68.34 Body mass index [BMI] 34.0-34.9, adult; E11.9 Type 2 diabetes mellitus without complications; R07.89 Other chest pain
CPT/HCPCS: 36415; 36416; 70450; 80053; 82962; 84484; 85025; 85610; 85730; 93005; 96374; 96375; 99285; J2405; J3490

== ENCOUNTER 2024-10-11 08:01 | Outpatient (CLI) | payer SELFPAY ==
--- NOTE | 2024-10-11 | ECG_ITS ---
J.G. ink Test Date: 2024-10-11 Pat Name: Niels Del Cid Department: Room: Gender: Male Chocolate Temperer: : 1970 Requested By: Huber Aguilar Order Number: [id number] Lukas MD: Renea Ly M.D. Interpretive Statements Lung unchanged pre/post procedure; Intraprocedure shortess of breath; Symptoms resoled by discharge PROCEDURE: At the baseline, the EKG revealed normal sinus rhythm with nonspecific T wave changes. The baseline heart was 73 bpm with a blood pressue of 179/100 mm of Hg Lexiscan was infused over a period of 20 seconds. A total of 0.4 milligrams of Lexiscan was infused. The stress phase was continued for a total of 5 minutes. Heart rate at the end of the stress phase was 72 bpm with a blood pressure 178/95 mm of Hg. The EKG at the peak infusion revealed no significant changes. Sestamibi was injected 20 seconds after the Lexiscan infusion. Heart rate at the end of the recovery phase was 70 bpm with a blood pressure of 172/89 mm of Hg. CONCLUSION: 1. No significant EKG changes with the LexiScan infusion 2. No LexiScan induced chest pain or cardiac arrhythmia 3. Normal blood pressure and heart rate response 4. Sestamibi/sestamibi perfusion scan pending; see separate report. Electronically Signed On 10-17-2024 13:26:38 CDT by Renea Ly M.D. [email or web address] [id number]
[2024-10-11 08:30] VITALS: BMI 29.7
--- NOTE | 2024-10-11 08:36 | NMCV_ITS ---
NM fernando perf SPECT r/s* [id number] Niels Del Cid Age: 54 Gender: M : 1970 Exam Date: 10/11/2024 09:31 Ordering Phys: Huber Rodríguez DO Technologist: SOHEILA Jenkins Exam Location: [facility] Indications: cp STRESS TEST Please see separate stress [facility] for full findings IMAGE PROTOCOL Rest/Stress 1 Lexiscan Day Radiopharmaceutical Dose (mCi) Administration Site Administered by Rest: Tc-99m 10.9 IV Julita Mosquera, ELECTRO WINNING OPERATOR Sestamibi Stress:Tc-99m 32.7 IV Julita Garciagle, ELECTRO WINNING OPERATOR Sestamibi Rest: 11-Oct-2024 60 Discovery 630 Stress: 11-Oct-2024 30 Discovery 630 0.4mg Lexiscan. Images obtained in supine and prone position. SPECT RESULTS Technical Quality: Good Raw Data Analysis: Normal Image Corrections: No attenuation or motion correction applied Summed Stress Score: 14 Summed Rest Score: 0 Summed Difference Score: 14 PERFUSION FINDINGS Moderate to large area of minimal to moderate decrease tracer uptake involving the inferolateral, anterolateral, apical, basal inferior and basal inferoseptal segments. Significant reversibility was noted in these areas at rest FUNCTIONAL RESULTS (calculated via Gated SPECT) Stress Image LV EF (%): 62 Stress EDV (mL):170 TID: 1.18 Stress ESV (mL):65 FUNCTIONAL FINDINGS: Segmental wall motion analysis revealing no gross wall motion abnormalities IMPRESSIONS 1. Myocardial perfusion imaging revealing moderate to large area of reversible defect involving the distribution of the circumflex artery and right coronary artery suggesting ischemia in the distribution of these arteries. 2. Normal ejection fraction of 62%. 3. LV wall motion analysis revealing no gross wall motion abnormalities. 4. Mildly dilated LV cavity with end-systolic volume of 65 mL 5. No similar previous studies are available for comparison Dr Renea Ly MD [facility] (Electronically Signed) Final Date: 11 October 2024 13:00 S
[2024-10-11] MEDS: regadenoson 0.4 Mg/5 ml Syringe IVP (10:05)
[2024-10-11 10:14] VITALS: BP 178/82; PULSE 82
== END 2024-10-11 08:02 | disposition home or self-care (01) ==
PROVIDERS: PCP Family Medicine; Visit Provider Family Medicine
DX: R07.89 Other chest pain (principal); R93.1 Abnormal findings on diagnostic imaging of heart and coronary circulation; I42.0 Dilated cardiomyopathy
CPT/HCPCS: 36415; 78452; 93017; 96374; A9500; J2785

== ENCOUNTER → 2024-10-14 15:37 | Outpatient (BNVA) | payer SELFPAY | PROVIDERS: PCP Family Medicine; Visit Provider Family Medicine | DX: E11.9 Type 2 diabetes mellitus without complications (principal); Z12.5 Encounter for screening for malignant neoplasm of prostate | CPT/HCPCS: 80053; 80061; 82043; 83036; 85025; G0103 ==

== ENCOUNTER → 2024-10-15 15:20 | Outpatient (BNVA) | payer SELFPAY | PROVIDERS: PCP Family Medicine | DX: R79.89 Other specified abnormal findings of blood chemistry (principal) | CPT/HCPCS: 80074 ==

== ENCOUNTER → 2024-10-27 13:17 | Outpatient (BNVA) | payer SELFPAY | PROVIDERS: PCP Family Medicine; Visit Provider Internal Medicine | DX: R07.9 Chest pain, unspecified (principal); I25.110 Atherosclerotic heart disease of native coronary artery with unstable angina pectoris; I10 Essential (primary) hypertension; R94.39 Abnormal result of other cardiovascular function study; R58 Hemorrhage, not elsewhere classified | CPT/HCPCS: 80048; 85025; 85610 ==

== ENCOUNTER 2024-11-03 07:11 | Outpatient (CLI) | payer SELFPAY ==
[2024-11-03] VITALS (15 sets, daily range): BP systolic 133–178; BP diastolic 69–107; PULSE 49–79; RESP 10–19; TEMP 37.1; O2SAT 94–98; BMI 31.6
[2024-11-03] MEDS: diphenhydrAMINE 50 mg Capsule PO (07:35)
[2024-11-03] MEDS: aspirin 325 mg Tablet PO (07:35)
--- NOTE | 2024-11-03 08:30 | XACV_ITS ---
Ht: 183 cm Wt: 106 kg BSA: 2.35 m2 Gender: Male : 1970 Any Known Allergies: No known allergies Exam Priority: Routine Indication(s): - Abnormal nuclear perfusion test Procedure(s): Procedure Description: Diagnostic procedure Procedure Description: Left Heart Catheterization Procedure Description: Left ventriculography Procedure Description: Coronary Angiography Diagnostic Cath Status: Elective Diagnostic Findings * INDICATION: Niels Del Cid is a 54 year old male with past medical history of diabetes, elevated blood pressures has been experiencing chest discomfort episodes and had abnormal stress test. * No disease noted in the Left Main, Left Anterior Descending, Right, or Circumflex coronary arteries. * Coronary angiography shows co-dominance. Conclusions 1. No disease noted in the Left Main, Left Anterior Descending, Right, or Circumflex coronary arteries. 2. Normal left ventricular systolic function. Ejection fraction of 55%. Recommendations * Aggressive risk factor modification. * Outpatient cardiology follow up in 2 weeks. Interventional RX Recommendation: medical therapy and/or counseling Diagnostic RX Recommendation: medical therapy and/or counseling Anticoagulation: Heparin Ventriculography Ejection Fraction: 55.0 % Pressures Phase:Rest AO : 118 / 81 ( 80 ) @ 11:11:00 AM 174 / 91 ( 124 ) @ 11:15:00 AM 177 / 90 ( 122 ) @ 11:15:00 AM 173 / 89 ( 120 ) @ 11:15:00 AM LV : 2 / -3 / -2 @ 11:13:00 AM 177 / -6 23 @ 11:14:00 AM 166 / -2 / 23 @ 11:14:00 AM 160 / -13 / 18 @ 11:15:00 AM 147 / -9 18 @ 11:15:00 AM Valves Phase:DefaultPhase AV : 0.0 @ 10:24:24 AM AV Mean Gradient: 0.0 @ 10:24:24 AM 0.0 @ 10:24:24 AM Clinical Evaluation EBL: 5mL-10mL Procedural Details Procedure Consent Obtained. Current Diagnosis : Chest Pain. Pre-Procedure Time Out. Identified patient by full name and date of as verbalized by the patient/guarantor. Does the consent match the physician's order: Yes. Accurate & Complete Informed Consent: Yes. Inpatient/Outpatient History & Physical on Chart: Yes. If H&P is completed, is and addenduem needed: No; If yes, is the addendum complete: N/A. Visualize and Verify Site with Patient/Guarantor: N/A. Relevant Radiology Images available: N/A. The risks, benefits, and alternatives of sedation and/or procedure were discussed by physician. The patient agrees to continue. Procedure started. [facility] Clinical Fraility Score: 3: Managing Well. Hide Paster Indications: Other. Chest Pain Symptom Assessment: Typical Angina Symptoms. Cardiovascular Instability: No. Correct patient, site and procedure confirmed by cath team. Current diagnosis: Chest Pain; Abnormal Stress Test. PERRLA. Strong, equal hand remote sensing technologist bilaterally. Lungs clear x 5 lobes. IV Site on Arrival: 20 gauge in the right anticubital. IV Fluids: 0.9% NaCl at KVO. 0 mL infused prior to medical laboratory assistant. Pre Procedural Pulses: bilateral posterior tibial was 3+. Pre Procedural Pulses: bilateral dorsalis pedis was 3+. Pre Procedural Pulses: bilateral radial was 3+. Oxygen started at 3liters/min via nasal canula. right groin was prepped with chloroprep then draped in the usual sterile fashion. right radial was prepped with chloroprep then draped in the usual sterile fashion. Physician notified. Baseline sample Acquired. HR: 59 BPM. Physician arrived. Physician scrubbed in. Immediate Pre-Procedure Time Out. Correct Patient: Yes; Correct Procedure: Yes; Correct Site: Yes; Correct Patient Position: Yes; Correct Supplies: Yes; Dried Flammable Prep: Yes; Blood Products Available: N/A;. Lidocaine 1% infiltrated to the right radial. Arterial access obtained. A 5 chilean TIG catheter in over wire. Multiple views taken of left coronary artery. Catheter redirected to the RCA. Multiple views taken of right coronary artery. Catheter removed over the exchange wire. A 5 chilean Angled Pig catheter in over wire. EDP Sample taken: LV 166/-3,23; HR: 67 BPM; SpO2: 99%. LV gram performed in ALVES @ 10 mL/second for a total of 30 mL. Patient EF: Normal. EDP Sample taken: LV 160/-14,18; HR: 62 BPM; SpO2: 99%. Pullback taken: LV 147/-10,18; AO 174/91(124); Mean: 0mmHg, Peak to Peak: 0mmHg, SEP: 4sec/min; HR: 61 BPM; SpO2: 99%. Catheter removed over the wire. Physician review of films. Physician scrubbed out. A TR Band was successful obtaining hemostatsis at the Right Radial artery insertion site. TR band placed. Hemostasis obtained. Post Procedure: Pulses reassessed and unchanged. PERRLA. Strong, equal hand remote sensing technologist bilaterally. No VTE prophylaxis required. Medication's Wasted: Lidocaine 1% = , Verapamil = , Nitro = , Heparin = , Other = mg. Total IV fluids: 15 mL. Fluoro: 3:00. Contrast type used: Omnipaque 300 mg/mL, 150 mL bottle. [id number]. Post-op diagnosis: Non Obstuctive CAD. Complications: None. Estimated blood loss: 5mL-10mL. Responsiveness - Normal response to verbal stimuli; alert and oriented, PERRLA. Airway - Unaffected, no intervention required; spontaneous ventilation. Circulation: W/N/L, pulses unchanged. Nausea/Vomiting: No. Procedure completed. Patient transferred by wheelchair to CPRU. Vital chart was stopped. Access Site Site: Right Radial artery Sheath Size: 6 Fr Hemostasis Method: TR Band Hemostasis Success: Successful Procedure Medications Start: 9:58 AM Stop: 9:58 AM Medication: Versed Amount: 1 mg Route: I.V. Start: 9:58 AM Stop: 9:58 AM Medication: Fentanyl Amount: 50 mcg Route: I.V. Start: 10:05 AM Stop: 10:05 AM Medication: Nitrogylcerin Amount: 200 mcg Route: I.A. Start: 10:07 AM Stop: 10:07 AM Medication: Heparin Amount: 5000 units Route: I.V. I, the attending physician, have reviewed and verified all procedure medications. Yes, all medications given per verbal order History/Risk Factors Hypertension: Yes Dyslipidemia: No Peripheral Arterial Disease (PAD): No Myocardial Infarction (MN): No Obesity: Yes Renal Disease: No Tobacco Use: Never Prior Interventions PCI: No CABG: No Valve Surgery: No Report Signatures Finalized by Amol Duggan MD on 11/21/2024 02:45 PM
--- NOTE | 2024-11-03 12:01 | P.SS_ITS ---
<Statement entered by Amol Duggan M.D - 11/05/24 09:21> Patient was cared for in conjunction with an advanced practice practitioner.? I reviewed the chart and all pertinent data including imaging, telemetry, and laboratory results.? I discussed the patient in detail with the advanced practice practitioner.? Please see? their note for complete progress note, testing results and agreed upon plan of care for the patient. Short Stay Summary Providers Date of Admit/Discharge: 11/03/24 Attending Provider: Amol Duggan M.D Primary Care Provider: Mariel Omer DO Chief Complaint: R94.39 HPI History of Present Illness Niels Del Cid is a 54 year old male with past medical history of diabetes, elevated blood pressures has been referred for evaluation of chest pain and abnormal stress test. According to patient in the last 6 months he has been having worsening chest discomfort episodes. These are associated with dyspnea on exertion. Has noticed heaviness in the arms when he exerts himself. Occasional resting pains as well. He had a stress test recently that showed large area of ischemia in circumflex artery and RCA territories. Blood pressure today is elevated. Review of Systems Card: Denies: chest pain, palpitations, irregular heart rhythm, edema, swelling of feet/ankles, lightheadedness, syncope, pre-syncope, dyspnea on exertion, orthopnea or leg pain with exertion Resp: Denies: dyspnea, productive cough or non-productive cough GI: Denies: hematochezia : Denies: hematuria Skin/Breast: Reports: surgical incision Kvng/Lymph: Denies: easy bleeding Home Meds/Allergies Home Medications and Allergies Home Medications ?Medication ?Instructions ?Recorded ?Confirmed ?Type aspirin 81 mg capsule 81 mg PO DAILY 11/02/2410/21 History Allergies Allergy/AdvReac Type Severity Reaction Status Date / Time No Known Allergies Allergy Verified 11/03/24 07:48 PFSH Acute PFSH: Medical History Obesity (BMI 30.0-34.9) Hypertension Elevated liver enzymes Decreased calculated GFR Chronic neck and back pain Diabetes type 2, controlled Family History Other CAD (coronary artery disease) Cancer Diabetes Social History Smoking and tobacco/nicotine status: never used tobacco/nicotine Alcohol intake: never Substance/Drug Use: never Household members: significant other Marital status: Number of children: 2 Number of grandchildren: 0 Current occupational status: employed Current occupation: self employed Vitals/I&O/Wt Last Vital Signs Temp 98.8 F 11/03/24 07:38 Pulse 79 11/03/24 11:15 Resp 18 11/03/24 11:15 BP 133/69 11/03/24 11:15 Pulse Ox 98 11/03/24 11:15 O2 Del Method Room Air 11/03/24 07:38 Weight last 48 hrs Weight 233 lb Physical Exam Const: COMMON NORMALS: no acute distress and patient oriented x3 GENERAL APPEARANCE: cooperative ORIENTATION/CONSCIOUSNESS: Yes awake, Yes oriented to person, Yes oriented to place and Yes oriented to time Chest: COMMONS NORMALS: normal inspection of the chest and normal palpation of entire chest wall CHEST: Yes Symmetrical chest wall rise Resp: COMMON NORMALS: normal respiratory effort, No retractions, No use of accessory muscles and clear to auscultation bilaterally AUSCULTATION: clear to auscultation bilaterally Cardio: COMMON NORMALS: regular rate, regular rhythm, S1 normal heart sound present, S2 normal heart sound present, No gallops present (Cardio), No clicks present (Cardio), No murmurs present (Cardio) and No rub (Cardio) RATE: regular rate RHYTHM: regular rhythm HEART SOUNDS: S1 normal heart sound present and S2 normal heart sound present PERIPHERAL PULSES: radial pulses present positive right 2+ and femoral pulses present positive right 2+ Neuro: COMMON NORMALS: patient oriented x3 and moves all extremities SENSORIUM/ORIENTATION: Yes oriented to person, Yes oriented to place and Yes oriented to time Skin: WOUNDS: Yes surgical site (no hematoma palpable) Details: no odor Hospital Course Hospital Course Patient was brought today for coronary angiogram, no significant stenosis was noted. Will start him on isosorbide mononitrate 30 mg daily, amlodipine 5 mg daily and Lasix 20 mg daily for medical management of chest pain. No complications with right radial cath site. Follow-up with cardiology [facility] in the clinic in 7 to 10 days. SSS Data Data Completed and Pending: Pending at discharge Category Date Time Status [employer] request for service Routin e Exams 11/03/24 08:30 Ordered Discharge Plan Discharge Patient Disposition: Home Prescriptions: Continued atorvastatin [Lipitor] 40 mg tablet 40 mg PO DAILY Qty: 30 1RF metformin 500 mg tablet 500 mg PO BID Qty: 60 0RF Jardiance 10 mg tablet 10 mg PO QAM Qty: 90 0RF aspirin 81 mg Capsule 81 mg PO DAILY metoprolol succinate [Toprol XL] 25 mg tablet extended release 24 hr 25 mg PO DAILY Qty: 30 1RF No Action amlodipine 5 mg tablet 5 mg PO DAILY Qty: 90 1RF isosorbide mononitrate 30 mg tablet extended release 24 hr 30 mg PO DAILY Qty: 90 0RF furosemide [Lasix] 20 mg tablet 20 mg PO DAILY Qty: 90 1RF Discharge Orders: Discharge Order (Routine); Ordered 11/03/24 Ordered By: Amber Ryan Referrals: Amanda Cao [facility] [Nurse Practitioner, Cardiology] - 11/10/24 8:30 am Diet: Advance as tolerated Activity: Increase activity as tolerated Patient Instructions: Furosemide (By mouth) (Lasix), Amlodipine (By mouth), Isosorbide Mononitrate (By mouth), Midazolam (By injection), Fentanyl (By injection), After Radial Heart Catheterization (GEN) Activity Restrictions/Additional Instructions: No lifting over 5 pounds with right arm for the next 4 days. We are starting a few medications to help with chest pain and blood pressure control. The isosorbide mononitrate is a long acting nitroglycerin which will help dilate the blood vessels for better flow. The amlodipine has a dual purpose, both for chest pain and for blood pressure. The pressures in the heart were a bit elevated, so we are starting you on a low dose diuretic to pull off fluid which should also help with chest pain as well. Print Language: Libyan Discharge Date/Time: 11/03/24 13:50 Attestations Medical Necessity Statement*: discharge today Time Spent in Patient Care*: less than 30 min Quality Metrics Clinical Quality Measures: [ No reported AMI, CVA or VTE this stay ] Coding Level of Care Code Acute Code for Chg Fwd
[2024-11-03] MEDS: amlodipine 10 mg Tablet PO (12:35)
== END 2024-11-03 13:50 | disposition home or self-care (01) ==
PROVIDERS: PCP Family Medicine; Visit Provider Internal Medicine
DX: R07.9 Chest pain, unspecified (principal); R94.39 Abnormal result of other cardiovascular function study; Z79.82 Long term (current) use of aspirin; E66.9 Obesity, unspecified; Z68.31 Body mass index [BMI] 31.0-31.9, adult; I10 Essential (primary) hypertension; E11.9 Type 2 diabetes mellitus without complications; Z79.84 Long term (current) use of oral hypoglycemic drugs
CPT/HCPCS: 36415; 93458; 96365; 96374; 99152; C1769; C1887; C1894; J1644; J2250; J3010; J3490; J7030; J9999; Q0163; Q9967

== ENCOUNTER → 2024-11-10 09:19 | Outpatient (BNVA) | payer SELFPAY | PROVIDERS: PCP Family Medicine; Visit Provider Nurse Practitioner Family | DX: I10 Essential (primary) hypertension (principal) | CPT/HCPCS: 36415; 82550; 83880; 85025 ==

== ENCOUNTER 2024-12-03 13:17 | Outpatient (CLI) | payer SELFPAY ==
--- NOTE | 2024-12-03 13:30 | USCV_ITS ---
Niels Del Cid Age: 54 Gender: M : 1970 Exam Date: 12/03/2024 14:15 Ordering Phys: Amol Duggan M.D ([email or web address]) Technologist: Ralph Landers Exam Location: [facility] [place] Indication: chest pain, sob BP: 128 / 86 HR: 63 Rhythm: Sinus Technical Quality: Adequate MEASUREMENTS (Male / Female) Normal Values 2D ECHO LV Diastolic Diameter PLAX 4.8 cm 4.2 - 5.9 / 3.9 - 5.3 cm IVS Diastolic Thickness 1.2 cm 0.6 - 1.0 / 0.6 - 0.9 cm IVS Systolic Thickness 1.8 cm LVPW Diastolic Thickness 1.7 cm 0.6 - 1.0 / 0.6 - 0.9 cm LVPW Systolic Thickness 2.3 cm LVOT Diameter 2.0 cm LV Ejection Fraction 2D Teich 72.1 % LV Ejection Fraction MOD 4C 71.7 % LV Ejection Fraction MOD 2C 65.3 % LV Ejection Fraction 2C AL 66.0 % LA Diameter 3.2 cm RA Systolic Volume 4C AL 30.1 ml RA Systolic Volume 4C MOD 30.2 ml LA Sys Volume AL 33.0 cm cubed LA Sys Volume Index AL 14.1 cm cubed/m squared Aorta at Sinotubular Diameter 2.5 cm IVC Diameter 1.9 cm M-MODE LA Ao Ratio MM 1.2 AV Cusp Separation MM 2.2 cm DOPPLER AV Peak Velocity 175.0 cm/s LVOT Peak Velocity 117.0 cm/s AV Area Cont Eq vti 2.3 cm squared AV Area Cont Eq pk 2.2 cm squared MV Peak Velocity 84.0 cm/s MV Area PHT 3.7 cm squared Mitral E to A Ratio 1.1 TR Peak Velocity 447.0 cm/s TR Peak Gradient 79.9 mmHg TR Mean Velocity 354.0 cm/s TR Mean Gradient 52.8 mmHg TR Velocity Time Integral 88.5 cm PV Peak Velocity 103.3 cm/s RV Ejection Time 0.3 s FINDINGS Left Ventricle Left ventricle is normal in size. LV systolic function is normal with EF 60-65%. No regional wall motion abnormalities are seen. Mild left ventricular hypertrophy. Right Ventricle Normal in size and function Right Atrium Normal in size Left Atrium Normal in size Mitral Valve Structurally normal mitral valve. Mild mitral regurgitation Aortic Valve Aortic valve is thickened. No significant stenosis. Trace aortic regurgitation Tricuspid Valve Mild tricuspid regurgitation. Insufficient TR jet to calculate RVSP Pulmonic Valve Not well visualized Pericardium Normal Aorta Normal in size IVC Appears to be normal CONCLUSIONS LV systolic function is normal with EF of 60-65% Mild left ventricular hypertrophy Mild mitral regurgitation Trace aortic regurgitation Mild tricuspid regurgitation No comparison studies are available Amol Duggan MD (Electronically Signed) Final Date: 19 December 2024 14:06 S
== END 2024-12-03 13:18 | disposition home or self-care (01) ==
PROVIDERS: PCP Family Medicine; Visit Provider Internal Medicine
DX: R07.9 Chest pain, unspecified (principal); R06.02 Shortness of breath; R93.1 Abnormal findings on diagnostic imaging of heart and coronary circulation; I34.0 Nonrheumatic mitral (valve) insufficiency; I35.8 Other nonrheumatic aortic valve disorders; I07.1 Rheumatic tricuspid insufficiency
CPT/HCPCS: 93306

== ENCOUNTER → 2025-01-28 13:20 | Outpatient (BNVA) | payer MEDICAID, SELFPAY | PROVIDERS: PCP Family Medicine; Visit Provider Family Medicine | DX: E11.9 Type 2 diabetes mellitus without complications (principal) | CPT/HCPCS: 80053; 83036 ==

== ENCOUNTER → 2025-05-06 08:17 | Outpatient (BNVA) | payer MEDICAID, SELFPAY | PROVIDERS: PCP Family Medicine; Visit Provider Family Medicine | DX: E11.9 Type 2 diabetes mellitus without complications (principal) | CPT/HCPCS: 80053; 83036 ==